=== PATIENT | female | born 1965 | race Caucasian/White ===

== ENCOUNTER 2018-05-31 19:18 | Inpatient (IN) | payer OTHER ==
[~2018-05-31] VITALS: Ht 160 cm; Wt 104.8 kg
--- NOTE | 2018-05-31 19:50 | PHYS DOC ---
Past Medical History Past Medical History: Hypothyroid Alcohol Use: None Drug Use: None Adult General Chief Complaint Chief Complaint: CHEST PAIN HPI HPI Patient is a 52 year old female who presents with chest and neck pain. This started approximately 1700 today. No respirophasic component. No PE risk factors. Patient took no medicine for this. Describes it as a heaviness. Nothing really seems to make it better or worse. No nausea or diaphoresis. No cough or fever. Patient has a family history of cardiac disease with mother needing a pacemaker and father having heart attack[] Review of Systems Review of Systems Constitutional: Denies fever or chills [] Eyes: Denies change in visual acuity, redness, or eye pain [] HENT: Denies nasal congestion or sore throat [] Respiratory: Denies cough or shortness of breath [] Cardiovascular: No additional information not addressed in HPI [] GI: Denies abdominal pain, nausea, vomiting, bloody stools or diarrhea [] : Denies dysuria or hematuria [] Musculoskeletal: Denies back pain or joint pain [] Integument: Denies rash or skin lesions [] Neurologic: Denies headache, focal weakness or sensory changes [] Endocrine: Denies polyuria or polydipsia [] All other systems were reviewed and found to be within normal limits, except as documented in this note. Current Medications Current Medications Current Medications Medications (Trade) Dose Ordered Sig/Contreras Start Time Stop Time Status Last Admin Dose Admin Aspirin (Children'S Aspirin) 324 mg 1X ONCE 05/31/18 20:15 05/31/18 20:16 DC 05/31/18 20:09 324 MG Sodium Chloride 1,000 ml @ 100 mls/hr Q10H 05/31/18 20:15 06/01/18 06:14 05/31/18 20:10 100 MLS/HR Allergies Allergies Allergies Coded Allergies Type Severity Reaction Last Updated Verified calamine Allergy Unknown 05/31/18 Yes Physical Exam Physical Exam Constitutional: Well developed, well nourished, no acute distress, non-toxic appearance. [] HENT: Normocephalic, atraumatic, bilateral external ears normal, oropharynx moist, no oral exudates, nose normal. [] Eyes: PERRLA, EOMI, conjunctiva normal, no discharge. [] Neck: Normal range of motion, no tenderness, supple, no stridor. [] Cardiovascular:Heart rate regular rhythm, no murmur [] Lungs & Thorax: Bilateral breath sounds clear to auscultation [] Abdomen: Bowel sounds normal, soft, no tenderness, no masses, no pulsatile masses. [] Skin: Warm, dry, no erythema, no rash. [] Back: No tenderness, no CVA tenderness. [] Extremities: No tenderness, no cyanosis, no clubbing, ROM intact, no edema. [] Neurologic: Alert and oriented X 3, normal motor function, normal sensory function, no focal deficits noted. [] Psychologic: Affect normal, judgement normal, mood normal. [] Current Patient Data Vital Signs Vital Signs Date Time Temp Pulse Resp B/P (MAP) Pulse Ox O2 Delivery O2 Flow Rate FiO2 05/31/18 19:35 98.0 84 20 144/84 (104) 97 Room Air 98.0 Lab Values Laboratory Tests Test 05/31/18 19:55 05/31/18 19:57 White Blood Count 7.2 x10^3/uL (4.0-11.0) Red Blood Count 3.89 x10^6/uL (3.50-5.40) Hemoglobin 12.3 g/dL (12.0-15.5) Hematocrit 36.8 % (36.0-47.0) Mean Corpuscular Volume 95 fL (79-100) Mean Corpuscular Hemoglobin 32 pg (25-35) Mean Corpuscular Hemoglobin Concent 33 g/dL (31-37) Red Cell Distribution Width 14.6 % (11.5-14.5) H Platelet Count 302 x10^3/uL (140-400) Neutrophils (%) (Auto) 58 % (31-73) Lymphocytes (%) (Auto) 30 % (24-48) Monocytes (%) (Auto) 8 % (0-9) Eosinophils (%) (Auto) 2 % (0-3) Basophils (%) (Auto) 2 % (0-3) Neutrophils # (Auto) 4.1 x10^3uL (1.8-7.7) Lymphocytes # (Auto) 2.2 x10^3/uL (1.0-4.8) Monocytes # (Auto) 0.6 x10^3/uL (0.0-1.1) Eosinophils # (Auto) 0.2 x10^3/uL (0.0-0.7) Basophils # (Auto) 0.1 x10^3/uL (0.0-0.2) Prothrombin Time 12.7 SEC (11.7-14.0) Prothrombin Time INR 1.0 (0.8-1.1) Sodium Level 144 mmol/L (136-145) Potassium Level 3.3 mmol/L (3.5-5.1) L Chloride Level 105 mmol/L (98-107) Carbon Dioxide Level 26 mmol/L (21-32) Anion Gap 13 (6-14) Blood Urea Nitrogen 17 mg/dL (7-20) Creatinine 1.4 mg/dL (0.6-1.0) H Estimated GFR (Cockcroft-Gault) 39.3 BUN/Creatinine Ratio 12 (6-20) Glucose Level 114 mg/dL (70-99) H Calcium Level 9.0 mg/dL (8.5-10.1) Magnesium Level 2.3 mg/dL (1.8-2.4) Total Bilirubin 0.3 mg/dL (0.2-1.0) Aspartate Amino Transferase (AST) 21 U/L (15-37) Alanine Aminotransferase (ALT) 16 U/L (14-59) Alkaline Phosphatase 90 U/L (46-116) Troponin I Quantitative < 0.017 ng/mL (0.000-0.055) VN-Adw-N-Type Natriuretic Peptide 41 pg/mL (0-124) Total Protein 7.8 g/dL (6.4-8.2) Albumin 3.7 g/dL (3.4-5.0) Albumin/Globulin Ratio 0.9 (1.0-1.7) L Lipase 109 U/L (73-393) Thyroid Stimulating Hormone (TSH) 258.496 uIU/mL (0.358-3.74) H POC Troponin I 0.09 ng/ml (<0.08) Laboratory Tests 05/31/18 19:55 Laboratory Tests 05/31/18 19:55 EKG EKG EKG shows a sinus rhythm at 71 bpm, normal axis, QTC of 450 ms, no ST elevation. Interpreted by me at 1935[] Radiology/Procedures Radiology/Procedures Chest x-ray shows no infiltrate, no effusion, no pneumothorax[] Course & Med Decision Making Course & Med Decision Making Pertinent Labs and Imaging studies reviewed. (See chart for details) ED course: Patient arrived, was placed in bed, and tolerated exam well. She was transported to and from x-ray without any complications. After return of lab and imaging findings, these were discussed with the patient and her both of whom voiced understanding. All questions were answered. Consultation was made with hospitalist service who graciously accepted the patient for admission. Patient was admitted in improved condition Medical decision making: Patient does not have a STEMI, no evidence of pulmonary embolism, pneumonia, pneumothorax, thoracic aneurysm dissection, nor esophageal rupture. Concerned about cardiac etiology for this chest and neck discomfort given her age, BMI, and family history.[] Dragon Disclaimer Dragon Disclaimer This electronic medical record was generated, in whole or in part, using a voice recognition dictation system. Departure Departure Impression: Primary Impression: Chest pain Disposition: HOME, SELF-CARE Admitting Physician: Mauro Grossman Condition: IMPROVED Problem Qualifiers Primary Impression: Chest pain Chest pain type: unspecified Qualified Codes: R07.9 - Chest pain, unspecified ANA PAULA MEYER DO May 31, 2018 19:50
[2018-05-31 20:12] LABS: BASO # 0.1 x10^3/uL (0.0-0.2); BASO % 2 % (0-3); EOS # 0.2 x10^3/uL (0.0-0.7); EOS % 2 % (0-3); HEMATOCRIT 36.8 % (36.0-47.0); HEMOGLOBIN 12.3 g/dL (12.0-15.5); LYMPH # 2.2 x10^3/uL (1.0-4.8); LYMPH % 30 % (24-48); MEAN CORPUSCULAR HEMOGLOBIN 32 pg (25-35); MEAN CORPUSCULAR HGB CONC 33 g/dL (31-37); MEAN CORPUSCULAR VOLUME 95 fL (79-100); MONO # 0.6 x10^3/uL (0.0-1.1); MONO % 8 % (0-9); NEUT # 4.1 x10^3uL (1.8-7.7); NEUT % 58 % (31-73); PLATELET COUNT 302 x10^3/uL (140-400); RED BLOOD COUNT 3.89 x10^6/uL (3.50-5.40); RED CELL DISTRIBUTION WIDTH 14.6 % (11.5-14.5); WHITE BLOOD COUNT 7.2 x10^3/uL (4.0-11.0)
[2018-05-31] MEDS ORDERED: ASPIRIN CHEWABLE 81 MG TABLET. PO ONE (20:15)
[2018-05-31] MEDS ORDERED: IV NORMAL SALINE 1000ML BAG 1,000 ML IV SCH (20:15)
[2018-05-31 20:21] LABS: PROTHROMBIN TIME PATIENT 12.7 SEC (11.7-14.0)
[2018-05-31 20:24] LABS: CREATININE 1.4 mg/dL (0.6-1.0); GFR 39.3; POTASSIUM 3.3 mmol/L (3.5-5.1)
[2018-05-31 20:28] LABS: ALBUMIN 3.7 g/dL (3.4-5.0); ALBUMIN/GLOBULIN RATIO 0.9 (1.0-1.7); MAGNESIUM 2.3 mg/dL (1.8-2.4); TOTAL BILIRUBIN 0.3 mg/dL (0.2-1.0); TOTAL PROTEIN 7.8 g/dL (6.4-8.2)
[2018-05-31] MEDS ORDERED: NITROGLYCERIN SUBLINGUAL 0.4 MG BOTTLE OF 25. SL PRN (22:00)
[2018-05-31] MEDS ORDERED: MORPHINE SULFATE 2 MG/ML VIAL. IV PRN (22:00)
[2018-05-31] MEDS ORDERED: ACETAMINOPHEN 325 MG TABLET. PO PRN (22:00)
[2018-05-31] MEDS ORDERED: ONDANSETRON PF 4 MG/2 ML VIAL. IV PRN (22:00)
[2018-05-31 23:00] VITALS: BP 161/82
[2018-05-31] MEDS ORDERED: LEVO150T PO (23:32)
[2018-05-31] MEDS: IV NORMAL SALINE 1000ML BAG 1,000 ML IV SCH (23:37)
--- NOTE | 2018-06-01 02:49 | EKG ---
[facility] [address] [place] [address] Test Date: 2018-06-01 Test Time: 01:50:51 Pat Name: ADA SANTOYO Department: Room: 204 1 Gender: F Nonprofit Financial Controller: EDELMIRART : 1965 Requested By: ANA PAULA MEYER Order Number: [id number] Reading MD: Reza Azul MD Measurements Intervals [place] Rate: 62 P: 39 NE: 158 QRS: 63 QRSD: 82 T: 114 QT: 374 QTc: 382 Interpretive Statements SINUS RHYTHM Electronically Signed On 06-06-2018 14:04:00 CDT by Reza Azul MD
[2018-06-01 03:00] VITALS: BP 146/78
--- NOTE | 2018-06-01 06:40 | RAD ---
PROCEDURE: CHEST PA LATERAL CLINICAL INDICATION: ER PATIENT. ATRAUMATIC CHEST PAIN RIGHT SIDE RADIATING TO THE NECK. NO PRIORS. COMPARISON: None FINDINGS: No pneumothorax identified. Cardiac and mediastinal contours unremarkable. No pulmonary consolidation or acute airspace disease. No acute osseous abnormalities identified. IMPRESSION: No pulmonary consolidation or acute airspace disease. Electronically signed by: Robert Meyers DO (06/01/2018 6:36 AM) [facility]
[2018-06-01 07:30] VITALS: BP 129/70
[2018-06-01 07:31] LABS: CHOLESTEROL/HDL RATIO 3.9
--- NOTE | 2018-06-01 09:15 | PDOC1 ---
History and Physical Date of Admission Date of Admission DATE: 06/01/18 TIME: 09:14 Identification/Chief Complaint Chief Complaint SEEN IN ER , presented with chest and LEFT neck pain. This started approximately 1700 05/31 . No respirophasic component. No PE risk factors. Patient took no medicine for this. Describes it as a heaviness. LEFT SIDE radiation left arm Nothing really seems to make it better or worse. No nausea or diaphoresis. No cough or fever. POS family history of cardiac disease with mother needing a pacemaker and father having heart attack[] TROPONIN I NEG SO FAR, ECHO PENDING Past Medical History Past Medical History Past Medical History Past Medical History: Hypothyroid, OBESITY, CHOLECYSTECTOMY Alcohol Use: None Drug Use: None STOPPED SMOKING 7 YRS AGO FAMILY HX FATHER HAD PR Cardiovascular: Hyperlipidemia Endocrine: Hypothyroidism Family History Family History: Coronary Artery Disease Family History: Parent Social History Smoke: Quit ALCOHOL: none Drugs: None Current Problem List Problem List Problems Medical Problems: (1) Chest pain Status: Acute Current Medications Current Medications Current Medications Aspirin (Children'S Aspirin) 324 mg 1X ONCE PO Last administered on 05/31/18at 20:09; Start 05/31/18 at 20:15; Stop 05/31/18 at 20:16; Status DC Sodium Chloride 1,000 ml @ 100 mls/hr Q10H IV Last administered on 05/31/18at 20:10; Start 05/31/18 at 20:15; Stop 06/01/18 at 06:14; Status DC Ondansetron HCl (Zofran) 4 mg PRN Q8HRS PRN IV NAUSEA/VOMITING 1ST CHOICE; Start 05/31/18 at 22:00; Stop 06/01/18 at 21:59 Morphine Sulfate (Morphine Sulfate) 2 mg PRN Q2HR PRN IV SEVERE PAIN; Start at 22:00; Stop 06/01/18 at 21:59 Sodium Chloride 1,000 ml @ 125 mls/hr Q8H IV Last administered on 05/31/18at 23 :37; Start 05/31/18 at 22:00; Stop 06/01/18 at 21:59 Acetaminophen (Tylenol) 650 mg PRN Q4HRS PRN PO FEVER Last administered on 05/31at 22:49; Start 05/31/18 at 22:00; Stop 3/16/19 at 21:59 Nitroglycerin (Nitrostat) 0.4 mg PRN Q5MIN PRN SL CHEST PAIN; Start 05/31/18 at 22:00; Stop 06/01/18 at 21:59 Active Scripts Active Reported Synthroid (Levothyroxine Sodium) 150 Mcg Tablet 1 Tab PO BID Allergies Allergies: Coded Allergies: calamine (Verified Allergy, Intermediate, 05/31/18) ROS Review of System Review of Systems Review of Systems Constitutional: Denies fever or chills [] Eyes: Denies change in visual acuity, redness, or eye pain [] HENT: Denies nasal congestion or sore throat [] Respiratory: Denies cough or shortness of breath [] Cardiovascular: No additional information not addressed in HPI [] GI: Denies abdominal pain, nausea, vomiting, bloody stools or diarrhea [] : Denies dysuria or hematuria [] Musculoskeletal: Denies back pain or joint pain [] Integument: Denies rash or skin lesions [] Neurologic: Denies headache, focal weakness or sensory changes [] Endocrine: Denies polyuria or polydipsia [] 14 pt systems were reviewed and found to be within normal limits, except as documented General: No: Chills, Night Sweats, Fatigue, Malaise, Appetite, Other HEENT: No: Heacaches, Visual Changes, Hearing change, Nasal congestion, Nasal discharge, Oral lesions, Sinus pain, Sore Throat, Epistaxis, Sneezing, Snoring, Tinnitus, Vertigo, Vocal changes, Other ALLERGY AND IMMUNOLOGY: No: Hives, Insect Bite Sensitivity, Itchy/Watery Eyes, Nasal Congestion, Post Nasal Drip, Seasonal Allergies, Other ENDOCRINE: No: Breast Changes, Galactorrhea, Hair Pattern Changes, Hot Flashes , Malaise/lethargy, Mood Swings, Palpitations, Polydipsia/polyuria, Skin Changes , Temperature Intolerance, Unexpected Weight Changes, Other Cardiovascular: yes Chest Pain Gastrointestinal: Yes Abdominal Pain (ruq); No Nausea, No Vomiting, No Diarrhea, No Constipation, No Melena, No Hematochezia, No Other Musculoskeletal: No Gait Disturbance, No Joint Pain, No Joint Stiffness, No Joint Swelling, No Muscle Pain, No Muscular Weakness, No Pain In:, No Swelling In:, No Other Neurological: No Behavorial Changes, No Bowel/Bladder ControlChng, No Confusion , No Dizziness, No Gait Disturbance, No Headaches, No Impaired Coord/balance, No Memory Loss, No Numbness/Tingling, No Seizures, No Speech Problems, No Tremors, No Visual Changes, No Weakness, No Other Physical Exam Physical Exam Physical Exam Physical Exam Constitutional: Well developed, well nourished, no acute distress, non-toxic appearance. [] HENT: Normocephalic, atraumatic, bilateral external ears normal, oropharynx moist, no oral exudates, nose normal. [] Eyes: PERRLA, EOMI, conjunctiva normal, no discharge. [] Neck: Normal range of motion, no tenderness, supple, no stridor. [] Cardiovascular:Heart rate regular rhythm, no murmur [] Lungs & Thorax: Bilateral breath sounds clear to auscultation [] Abdomen: Bowel sounds normal, soft, no tenderness, no masses, no pulsatile masses. [] Skin: Warm, dry, no erythema, no rash. [] Back: No tenderness, no CVA tenderness. [] Extremities: No tenderness, no cyanosis, no clubbing, ROM intact, no edema. [] Neurologic: Alert and oriented X 3, normal motor function, normal sensory function, no focal deficits noted. [] Psychologic: Affect normal, judgement normal, mood normal. [] General: Alert, Oriented X3, Cooperative, No acute distress HEENT: Atraumatic, PERRLA Lungs: Clear to auscultation Heart: S1S2, RRR, no thrills, no rubs, no gallops, no murmurs Breasts: Not examined Abdomen: Normal bowel sounds, Soft, No hepatosplenomegaly Rectal Exam: not examined Extremities: No cyanosis, No edema Neuro: Normal speech, Cranial nerves 3-12 NL Psych/Mental Status: Mental status NL Vitals Vitals Vital Signs Date Time Temp Pulse Resp B/P (MAP) Pulse Ox O2 Delivery O2 Flow Rate FiO2 06/01/18 07:40 Room Air 06/01/18 07:30 98.2 62 18 129/70 (89) 96 98.2 Labs Labs Laboratory Tests Test 05/31/18 19:55 05/31/18 19:57 06/01/18 01:30 06/01/18 01:34 White Blood Count 7.2 x10^3/uL (4.0-11.0) Red Blood Count 3.89 x10^6/uL (3.50-5.40) Hemoglobin 12.3 g/dL (12.0-15.5) Hematocrit 36.8 % (36.0-47.0) Mean Corpuscular Volume 95 fL (79-100) Mean Corpuscular Hemoglobin 32 pg (25-35) Mean Corpuscular Hemoglobin Concent 33 g/dL (31-37) Red Cell Distribution Width 14.6 % (11.5-14.5) Platelet Count 302 x10^3/uL (140-400) Neutrophils (%) (Auto) 58 % (31-73) Lymphocytes (%) (Auto) 30 % (24-48) Monocytes (%) (Auto) 8 % (0-9) Eosinophils (%) (Auto) 2 % (0-3) Basophils (%) (Auto) 2 % (0-3) Neutrophils # (Auto) 4.1 x10^3uL (1.8-7.7) Lymphocytes # (Auto) 2.2 x10^3/uL (1.0-4.8) Monocytes # (Auto) 0.6 x10^3/uL (0.0-1.1) Eosinophils # (Auto) 0.2 x10^3/uL (0.0-0.7) Basophils # (Auto) 0.1 x10^3/uL (0.0-0.2) Prothrombin Time 12.7 SEC (11.7-14.0) Prothromb Time International Ratio 1.0 (0.8-1.1) Sodium Level 144 mmol/L (136-145) Potassium Level 3.3 mmol/L (3.5-5.1) Chloride Level 105 mmol/L (98-107) Carbon Dioxide Level 26 mmol/L (21-32) Anion Gap 13 (6-14) Blood Urea Nitrogen 17 mg/dL (7-20) Creatinine 1.4 mg/dL (0.6-1.0) Estimated GFR (Cockcroft-Gault) 39.3 BUN/Creatinine Ratio 12 (6-20) Glucose Level 114 mg/dL (70-99) Calcium Level 9.0 mg/dL (8.5-10.1) Magnesium Level 2.3 mg/dL (1.8-2.4) Total Bilirubin 0.3 mg/dL (0.2-1.0) Aspartate Amino Transf (AST/SGOT) 21 U/L (15-37) Alanine Aminotransferase (ALT/SGPT) 16 U/L (14-59) Alkaline Phosphatase 90 U/L (46-116) Troponin I Quantitative < 0.017 ng/mL (0.000-0.055) < 0.017 ng/mL (0.000-0.055) < 0.017 ng/mL (0.000-0.055) OC-Pih-C-Type Natriuretic Peptide 41 pg/mL (0-124) Total Protein 7.8 g/dL (6.4-8.2) Albumin 3.7 g/dL (3.4-5.0) Albumin/Globulin Ratio 0.9 (1.0-1.7) Lipase 109 U/L (73-393) Thyroid Stimulating Hormone (TSH) 258.496 uIU/mL (0.358-3.74) Bedside Troponin I 0.09 ng/ml (<0.08) Test 06/01/18 05:30 Triglycerides Level 97 mg/dL (0-150) Cholesterol Level 221 mg/dL (0-200) LDL Cholesterol, Calculated 146 mg/dL (0-100) VLDL Cholesterol, Calculated 19 mg/dL (0-40) Non-HDL Cholesterol Calculated 165 mg/dL (0-129) HDL Cholesterol 56 mg/dL (40-60) Cholesterol/HDL Ratio 3.9 Laboratory Tests Test 05/31/18 19:55 05/31/18 19:57 06/01/18 01:30 06/01/18 01:34 White Blood Count 7.2 x10^3/uL (4.0-11.0) Red Blood Count 3.89 x10^6/uL (3.50-5.40) Hemoglobin 12.3 g/dL (12.0-15.5) Hematocrit 36.8 % (36.0-47.0) Mean Corpuscular Volume 95 fL (79-100) Mean Corpuscular Hemoglobin 32 pg (25-35) Mean Corpuscular Hemoglobin Concent 33 g/dL (31-37) Red Cell Distribution Width 14.6 % (11.5-14.5) Platelet Count 302 x10^3/uL (140-400) Neutrophils (%) (Auto) 58 % (31-73) Lymphocytes (%) (Auto) 30 % (24-48) Monocytes (%) (Auto) 8 % (0-9) Eosinophils (%) (Auto) 2 % (0-3) Basophils (%) (Auto) 2 % (0-3) Neutrophils # (Auto) 4.1 x10^3uL (1.8-7.7) Lymphocytes # (Auto) 2.2 x10^3/uL (1.0-4.8) Monocytes # (Auto) 0.6 x10^3/uL (0.0-1.1) Eosinophils # (Auto) 0.2 x10^3/uL (0.0-0.7) Basophils # (Auto) 0.1 x10^3/uL (0.0-0.2) Prothrombin Time 12.7 SEC (11.7-14.0) Prothromb Time International Ratio 1.0 (0.8-1.1) Sodium Level 144 mmol/L (136-145) Potassium Level 3.3 mmol/L (3.5-5.1) Chloride Level 105 mmol/L (98-107) Carbon Dioxide Level 26 mmol/L (21-32) Anion Gap 13 (6-14) Blood Urea Nitrogen 17 mg/dL (7-20) Creatinine 1.4 mg/dL (0.6-1.0) Estimated GFR (Cockcroft-Gault) 39.3 BUN/Creatinine Ratio 12 (6-20) Glucose Level 114 mg/dL (70-99) Calcium Level 9.0 mg/dL (8.5-10.1) Magnesium Level 2.3 mg/dL (1.8-2.4) Total Bilirubin 0.3 mg/dL (0.2-1.0) Aspartate Amino Transf (AST/SGOT) 21 U/L (15-37) Alanine Aminotransferase (ALT/SGPT) 16 U/L (14-59) Alkaline Phosphatase 90 U/L (46-116) Troponin I Quantitative < 0.017 ng/mL (0.000-0.055) < 0.017 ng/mL (0.000-0.055) < 0.017 ng/mL (0.000-0.055) KS-Fgx-E-Type Natriuretic Peptide 41 pg/mL (0-124) Total Protein 7.8 g/dL (6.4-8.2) Albumin 3.7 g/dL (3.4-5.0) Albumin/Globulin Ratio 0.9 (1.0-1.7) Lipase 109 U/L (73-393) Thyroid Stimulating Hormone (TSH) 258.496 uIU/mL (0.358-3.74) Bedside Troponin I 0.09 ng/ml (<0.08) Test 06/01/18 05:30 Triglycerides Level 97 mg/dL (0-150) Cholesterol Level 221 mg/dL (0-200) LDL Cholesterol, Calculated 146 mg/dL (0-100) VLDL Cholesterol, Calculated 19 mg/dL (0-40) Non-HDL Cholesterol Calculated 165 mg/dL (0-129) HDL Cholesterol 56 mg/dL (40-60) Cholesterol/HDL Ratio 3.9 Images Images SEX: F EXAM STATUS: ADM IN ORD. PHYSICIAN: ANA PAULA MEYER DO REASON: chest pain PROCEDURE: CHEST PA & LATERAL PROCEDURE: CHEST PA LATERAL CLINICAL INDICATION: ER PATIENT. ATRAUMATIC CHEST PAIN RIGHT SIDE RADIATING TO THE NECK. NO PRIORS. COMPARISON: None FINDINGS: No pneumothorax identified. Cardiac and mediastinal contours unremarkable. No pulmonary consolidation or acute airspace disease. No acute osseous abnormalities identified. IMPRESSION: No pulmonary consolidation or acute airspace disease. Electronically signed by: Robert Meyers DO (06/01/2018 6:36 AM) [facility] VTE Prophylaxis Ordered VTE Prophylaxis Devices: Yes VTE Pharmacological Prophylaxi: Yes Assessment/Plan Assessment/Plan impression 1. chest pain with risk factors inc pos FAMILY HX, PREV SMOKER, POST MENOPAUSAL STATE, OBESITY 2. RUQ discomfort, needs outpatient work-up with PCP 3. Hypothyroid state, forgot to take meds x 48 hrs with inc TSH, NEEDS PCP TO FOLLOW 4, MORBID OBESITY 5. HYPERLIPIDEMIA, SHOULD IMPROVE WITH THYROID SUPPLEMENT RESTART, // F/U PCP PLAN ADMIT CARDIOLOGY CONSULT ECHO SERIAL TROPONIN I DVT PROPHYLAXIS CONSIDER OUTPT STRESS TESTING RESTART SYNTHROID 0.150 MG PO DAILY PROTONIX 40MG PO DAILY CHRISTO SO MD Jun 01, 2018 09:14
[2018-06-01 11:19] VITALS: BP 138/75
[2018-06-01] MEDS ORDERED: POTASSIUM CHLORIDE 20 MEQ TABLET.ER. PO ONE (11:45)
--- NOTE | 2018-06-01 11:45 | PDOC2 ---
CARDIOLOGY CONSULT NOTE CHEIF COMPLAINT: Chest pain HPI: Magdalena is a pleasant 52 yo female w/ PMH of hypothyroidism who was seen today for chest pain. Patient states that yesterday after she woke up and was active she started having a tightness and severe pain, 10/10, in her neck that radiated to her chest and down her left UE. She stated that the pain lasted a couple hours causing her to come to the ED. She admitted having nausea, [place], dizziness, SOB, and numbness in her left hand. She denied heart palpitations. She denied aggravating and alleviating factors. The pain spontaneously resolved after being treated in the ER. She currently admits having RUQ abdominal pain that she describes as a dull pain. She states that it is constant and has been present for multiple years but it has recently increased in severity. She rates the pain as a 6/10 but denies any increase in pain w/ urination. PMHX: Hypothyroidism SOCHX: >20 pk year history quit smoking 7 years prior Denies alcohol and recreational drug use FAMHX: Mother: CHF and HTN Father: AL in 70s, CABG x5 CURRENT MEDS: Current Medications Medications (Trade) Dose Ordered Sig/Contreras Start Time Stop Time Status Last Admin Dose Admin Acetaminophen (Tylenol) 650 mg PRN Q4HRS PRN 05/31/18 22:00 06/01/18 21:59 05/31/18 22:49 650 MG Aspirin (Children'S Aspirin) 324 mg 1X ONCE 05/31/18 20:15 05/31/18 20:16 DC 05/31/18 20:09 324 MG Morphine Sulfate (Morphine Sulfate) 2 mg PRN Q2HR PRN 05/31/18 22:00 06/01/18 21:59 Nitroglycerin (Nitrostat) 0.4 mg PRN Q5MIN PRN 05/31/18 22:00 06/01/18 21:59 Ondansetron HCl (Zofran) 4 mg PRN Q8HRS PRN 05/31/18 22:00 06/01/18 21:59 Sodium Chloride 1,000 ml @ 125 mls/hr Q8H 05/31/18 22:00 06/01/18 21:59 05/31/18 23:37 125 MLS/HR ALLERGIES: Allergies Coded Allergies Type Severity Reaction Last Updated Verified calamine Allergy Intermediate 05/31/18 Yes ROS: GEN: Denies fever and fatigue HEENT: Admits headache, denies change in vision HEART: see HPI LUNGS: Denies cough and wheezing GI: admits constipation : Denies dysuria and frequent urination EXTREMITIES: Admits edema in her hands, denies weakness PHYSICAL EXAM: Vital Signs: Vital Signs Date Time Temp Pulse Resp B/P (MAP) Pulse Ox O2 Delivery O2 Flow Rate FiO2 06/01/18 07:40 Room Air 06/01/18 07:30 98.2 62 18 129/70 (89) 96 98.2 I & O Intake and Output 06/01/18 07:00 Intake Total 1300 ml Output Total 200 ml Balance 1100 ml Intake Oral 300 ml IV Total 1000 ml Output Urine Total 200 ml Physical Exam: GEN: pleasant, NAD HEENT: unremarkable HEART: RRR LUNGS: CTAB ABD: Obese, NT/ND EXT: No edema. MSK: Mild TTP of the left costophrenic angles DIAGNOSTIC TESTING: Trop negative x 1 EKG unremarkable ASSESSMENT: 1. Non-cardiac chest pain 2. Elevated TSH 3. Dyslipidemia 4. prior tobacco abuse. PLAN: 1. No clear cardiac symptoms currently 2. Continue to cycle enzymes and plan for outpt stress testing based on risk factors. Ok to DC tomorrow if stable overnight. LAVERNE FERGUSON MD Jun 01, 2018 11:45
[2018-06-01] MEDS: IV NORMAL SALINE 1000ML BAG 1,000 ML IV SCH (12:12)
[2018-06-01 15:00] VITALS: BP 120/73
[2018-06-01] MEDS: PANTOPRAZOLE 40 MG TABLET.DR. PO SCH (15:00)
--- NOTE | 2018-06-01 17:13 | EKG ---
[facility] [address] [place] [address] Test Date: 2018-05-31 Test Time: 19:33:48 Pat Name: ADA SANTOYO Department: Room: 204 1 Gender: Female [employer] Operator: : 1965 Requested By: ANA PAULA MEYER Order Number: [id number] Reading MD: Reza Azul MD Measurements Intervals Hir[place] Rate: 70 P: 157 PA: 152 QRS: 13 QRSD: 82 T: 40 QT: 414 QTc: 450 Interpretive Statements PROBABLE SR NON-SPECIFIC ST/T CHANGES BASELINE ARTIFACT Electronically Signed On 06-06-2018 14:02:46 CDT by Reza Azul MD
[2018-06-01 19:20] VITALS: BP 150/68
[2018-06-01 23:40] VITALS: BP 138/70
[2018-06-02 03:15] VITALS: BP 142/69
[2018-06-02] MEDS ORDERED: LEVOTHYROXINE 150 MCG TABLET PO SCH (06:00)
[2018-06-02] MEDS: PANTOPRAZOLE 40 MG TABLET.DR. PO SCH (07:30)
[2018-06-02 07:35] VITALS: BP 145/75
[2018-06-02 10:16] VITALS: BP 121/71
--- NOTE | 2018-06-02 11:21 | PDOC ---
PROGRESS NOTES History of Present Illness History of Present Illness Assessment/Plan Assessment/Plan impression 1. chest pain with risk factors inc pos FAMILY HX, PREV SMOKER, POST MENOPAUSAL STATE, OBESITY 2. RUQ discomfort, needs outpatient work-up with PCP 3. Hypothyroid state, forgot to take meds x 48 hrs with inc TSH, NEEDS PCP TO FOLLOW 4, MORBID OBESITY 5. HYPERLIPIDEMIA, SHOULD IMPROVE WITH THYROID SUPPLEMENT RESTART, // F/U PCP PLAN HOME TODAY IF ECHO IS OK CARDIOLOGY CONSULT OK WITH D/C IF ECHO OK ECHO SERIAL TROPONIN I DVT PROPHYLAXIS CONSIDER OUT-PT STRESS TESTING RESTART SYNTHROID 0.150 MG PO DAILY PROTONIX 40MG PO DAILY Vitals Vitals Vital Signs Date Time Temp Pulse Resp B/P (MAP) Pulse Ox O2 Delivery O2 Flow Rate FiO2 06/02/18 10:16 98.1 65 18 121/71 (88) 97 Room Air 98.1 Physical Exam General: Alert, Oriented X3, Cooperative, No acute distress Heart: Regular rate, Normal S1 Abdomen: Normal bowel sounds, Soft, No hepatosplenomegaly Extremities: No clubbing, No cyanosis, No edema Skin: No significant lesion Labs LABS Laboratory Tests Test 06/01/18 12:15 Troponin I Quantitative < 0.017 ng/mL (0.000-0.055) Thyroid Stimulating Hormone (TSH) 198.260 uIU/mL (0.358-3.74) Assessment and Plan Assessmemt and Plan Problems Medical Problems: (1) Chest pain Status: Acute Comment Review of Relevant I have reviewed the following items derrick (where applicable) has been applied. Labs Laboratory Tests Test 05/31/18 19:55 05/31/18 19:57 06/01/18 01:30 06/01/18 01:34 White Blood Count 7.2 x10^3/uL (4.0-11.0) Red Blood Count 3.89 x10^6/uL (3.50-5.40) Hemoglobin 12.3 g/dL (12.0-15.5) Hematocrit 36.8 % (36.0-47.0) Mean Corpuscular Volume 95 fL (79-100) Mean Corpuscular Hemoglobin 32 pg (25-35) Mean Corpuscular Hemoglobin Concent 33 g/dL (31-37) Red Cell Distribution Width 14.6 % (11.5-14.5) Platelet Count 302 x10^3/uL (140-400) Neutrophils (%) (Auto) 58 % (31-73) Lymphocytes (%) (Auto) 30 % (24-48) Monocytes (%) (Auto) 8 % (0-9) Eosinophils (%) (Auto) 2 % (0-3) Basophils (%) (Auto) 2 % (0-3) Neutrophils # (Auto) 4.1 x10^3uL (1.8-7.7) Lymphocytes # (Auto) 2.2 x10^3/uL (1.0-4.8) Monocytes # (Auto) 0.6 x10^3/uL (0.0-1.1) Eosinophils # (Auto) 0.2 x10^3/uL (0.0-0.7) Basophils # (Auto) 0.1 x10^3/uL (0.0-0.2) Prothrombin Time 12.7 SEC (11.7-14.0) Prothromb Time International Ratio 1.0 (0.8-1.1) Sodium Level 144 mmol/L (136-145) Potassium Level 3.3 mmol/L (3.5-5.1) Chloride Level 105 mmol/L (98-107) Carbon Dioxide Level 26 mmol/L (21-32) Anion Gap 13 (6-14) Blood Urea Nitrogen 17 mg/dL (7-20) Creatinine 1.4 mg/dL (0.6-1.0) Estimated GFR (Cockcroft-Gault) 39.3 BUN/Creatinine Ratio 12 (6-20) Glucose Level 114 mg/dL (70-99) Calcium Level 9.0 mg/dL (8.5-10.1) Magnesium Level 2.3 mg/dL (1.8-2.4) Total Bilirubin 0.3 mg/dL (0.2-1.0) Aspartate Amino Transf (AST/SGOT) 21 U/L (15-37) Alanine Aminotransferase (ALT/SGPT) 16 U/L (14-59) Alkaline Phosphatase 90 U/L (46-116) Troponin I Quantitative < 0.017 ng/mL (0.000-0.055) < 0.017 ng/mL (0.000-0.055) < 0.017 ng/mL (0.000-0.055) QY-Pfd-A-Type Natriuretic Peptide 41 pg/mL (0-124) Total Protein 7.8 g/dL (6.4-8.2) Albumin 3.7 g/dL (3.4-5.0) Albumin/Globulin Ratio 0.9 (1.0-1.7) Lipase 109 U/L (73-393) Thyroid Stimulating Hormone (TSH) 258.496 uIU/mL (0.358-3.74) Bedside Troponin I 0.09 ng/ml (<0.08) Test 06/01/18 05:30 06/01/18 12:15 Triglycerides Level 97 mg/dL (0-150) Cholesterol Level 221 mg/dL (0-200) LDL Cholesterol, Calculated 146 mg/dL (0-100) VLDL Cholesterol, Calculated 19 mg/dL (0-40) Non-HDL Cholesterol Calculated 165 mg/dL (0-129) HDL Cholesterol 56 mg/dL (40-60) Cholesterol/HDL Ratio 3.9 Troponin I Quantitative < 0.017 ng/mL (0.000-0.055) Thyroid Stimulating Hormone (TSH) 198.260 uIU/mL (0.358-3.74) Laboratory Tests Test 06/01/18 12:15 Troponin I Quantitative < 0.017 ng/mL (0.000-0.055) Thyroid Stimulating Hormone (TSH) 198.260 uIU/mL (0.358-3.74) Medications Current Medications Aspirin (Children'S Aspirin) 324 mg 1X ONCE PO Last administered on 05/31/18at 20:09; Start 05/31/18 at 20:15; Stop 05/31/18 at 20:16; Status DC Sodium Chloride 1,000 ml @ 100 mls/hr Q10H IV Last administered on 05/31/18at 20:10; Start 05/31/18 at 20:15; Stop 06/01/18 at 06:14; Status DC Ondansetron HCl (Zofran) 4 mg PRN Q8HRS PRN IV NAUSEA/VOMITING 1ST CHOICE; Start 05/31/18 at 22:00; Stop 06/01/18 at 21:59; Status DC Morphine Sulfate (Morphine Sulfate) 2 mg PRN Q2HR PRN IV SEVERE PAIN; Start at 22:00; Stop 06/01/18 at 21:59; Status DC Sodium Chloride 1,000 ml @ 125 mls/hr Q8H IV Last administered on 06/01/18at 12 :12; Start 05/31/18 at 22:00; Stop 06/01/18 at 14:06; Status DC Acetaminophen (Tylenol) 650 mg PRN Q4HRS PRN PO FEVER Last administered on 05/31at 22:49; Start 05/31/18 at 22:00; Stop 06/01/18 at 21:59; Status DC Nitroglycerin (Nitrostat) 0.4 mg PRN Q5MIN PRN SL CHEST PAIN; Start 05/31/18 at 22:00; Stop 06/01/18 at 21:59; Status DC Potassium Chloride (Klor-Con) 60 meq 1X ONCE PO Last administered on at 12:12; Start 06/01/18 at 11:45; Stop 06/01/18 at 11:46; Status DC Levothyroxine Sodium (Synthroid) 150 mcg DAILY06 PO Last administered on at 06:40; Start 06/02/18 at 06:00 Pantoprazole Sodium (Protonix) 40 mg DAILYAC PO ; Start 06/01/18 at 15:00 Atorvastatin Calcium (Lipitor) 20 mg QHS PO ; Start 06/02/18 at 21:00 Active Scripts Active Reported Synthroid (Levothyroxine Sodium) 150 Mcg Tablet 1 Tab PO BID Vitals/I & O Vital Sign - Last 24 Hours 06/01/18 06/01/18 06/01/18 06/01/18 15:00 19:20 20:11 23:40 Temp 98.0 97.6 97.7 98.0 97.6 97.7 Pulse 69 65 64 Resp 16 21 20 B/P (MAP) 120/73 (89) 150/68 (95) 138/70 (92) Pulse Ox 94 97 98 O2 Delivery Room Air Room Air Room Air Room Air 06/02/18 06/02/18 06/02/18 06/02/18 03:15 07:35 08:00 10:16 Temp 97.7 98.0 98.1 97.7 98.0 98.1 Pulse 61 59 65 Resp 18 18 18 B/P (MAP) 142/69 (93) 145/75 (98) 121/71 (88) Pulse Ox 96 97 97 O2 Delivery Room Air Room Air Room Air Room Air Intake and Output 06/01/18 06/01/18 06/02/18 14:59 22:59 06:59 Intake Total 0 ml 1500 ml 480 ml Output Total 1200 ml 1000 ml Balance 0 ml 300 ml -520 ml CHRISTO SO MD Jun 02, 2018 11:21
--- NOTE | 2018-06-02 11:59 | PDOC3 ---
Discharge Summary Date of Admission: May 31, 2018 Date of Discharge: Jun 02, 2018 Follow-Up: 3-5 days Admitting Diagnosis comment: DISCHARGE DX Assessment/Plan impression 1. chest pain with risk factors inc pos FAMILY HX, PREV SMOKER, POST MENOPAUSAL STATE, OBESITY 2. RUQ discomfort, needs outpatient work-up with PCP 3. Hypothyroid state, forgot to take meds x 48 hrs with inc TSH, NEEDS PCP TO FOLLOW 4, MORBID OBESITY 5. HYPERLIPIDEMIA, SHOULD IMPROVE WITH THYROID SUPPLEMENT RESTART, // F/U PCP/ LIPITOR PLAN HOME TODAY IF ECHO IS OK 06/02 CARDIOLOGY CONSULT OK WITH D/C IF ECHO OK ECHO SERIAL TROPONIN I DVT PROPHYLAXIS CONSIDER OUT-PT STRESS TESTING RESTART SYNTHROID 0.150 MG PO DAILY PROTONIX 40MG PO DAILY Vitals Vitals Vital Signs Date Time Temp Pulse Resp B/P (MAP) Pulse Ox O2 Delivery O2 Flow Rate FiO2 06/02/18 10:16 98.1 65 18 121/71 (88) 97 Room Air 98.1 Physical Exam General: Alert, Oriented X3, Cooperative, No acute distress Heart: Regular rate, Normal S1 Abdomen: Normal bowel sounds, Soft, No hepatosplenomegaly Extremities: No clubbing, No cyanosis, No edema Skin: No significant lesion FINAL DIAGNOSIS Problems Medical Problems: (1) Chest pain Status: Acute Brief Hospital Course Ms. Ott is a 52 old [sex] who presented with [ CHEST PAIN] CONDITION AT DISCHARGE: Improved Discharge Medications Current Medications Aspirin (Children'S Aspirin) 324 mg 1X ONCE PO Last administered on 05/31/18at 20:09; Start 05/31/18 at 20:15; Stop 05/31/18 at 20:16; Status DC Sodium Chloride 1,000 ml @ 100 mls/hr Q10H IV Last administered on 05/31/18at 20:10; Start 05/31/18 at 20:15; Stop 06/01/18 at 06:14; Status DC Ondansetron HCl (Zofran) 4 mg PRN Q8HRS PRN IV NAUSEA/VOMITING 1ST CHOICE; Start 05/31/18 at 22:00; Stop 06/01/18 at 21:59; Status DC Morphine Sulfate (Morphine Sulfate) 2 mg PRN Q2HR PRN IV SEVERE PAIN; Start at 22:00; Stop 06/01/18 at 21:59; Status DC Sodium Chloride 1,000 ml @ 125 mls/hr Q8H IV Last administered on 06/01/18at 12 :12; Start 05/31/18 at 22:00; Stop 06/01/18 at 14:06; Status DC Acetaminophen (Tylenol) 650 mg PRN Q4HRS PRN PO FEVER Last administered on 05/31at 22:49; Start 05/31/18 at 22:00; Stop 06/01/18 at 21:59; Status DC Nitroglycerin (Nitrostat) 0.4 mg PRN Q5MIN PRN SL CHEST PAIN; Start 05/31/18 at 22:00; Stop 06/01/18 at 21:59; Status DC Potassium Chloride (Klor-Con) 60 meq 1X ONCE PO Last administered on at 12:12; Start 06/01/18 at 11:45; Stop 06/01/18 at 11:46; Status DC Levothyroxine Sodium (Synthroid) 150 mcg DAILY06 PO Last administered on at 06:40; Start 06/02/18 at 06:00 Pantoprazole Sodium (Protonix) 40 mg DAILYAC PO ; Start 06/01/18 at 15:00 Atorvastatin Calcium (Lipitor) 20 mg QHS PO ; Start 06/02/18 at 21:00 Active Scripts Active Reported Synthroid (Levothyroxine Sodium) 150 Mcg Tablet 1 Tab PO BID Vital Signs Vital Signs Date Time Temp Pulse Resp B/P (MAP) Pulse Ox O2 Delivery O2 Flow Rate FiO2 06/02/18 10:16 98.1 65 18 121/71 (88) 97 Room Air 98.1 Labs Laboratory Tests Test 05/31/18 19:55 05/31/18 19:57 06/01/18 01:30 06/01/18 01:34 White Blood Count 7.2 x10^3/uL (4.0-11.0) Red Blood Count 3.89 x10^6/uL (3.50-5.40) Hemoglobin 12.3 g/dL (12.0-15.5) Hematocrit 36.8 % (36.0-47.0) Mean Corpuscular Volume 95 fL (79-100) Mean Corpuscular Hemoglobin 32 pg (25-35) Mean Corpuscular Hemoglobin Concent 33 g/dL (31-37) Red Cell Distribution Width 14.6 % (11.5-14.5) Platelet Count 302 x10^3/uL (140-400) Neutrophils (%) (Auto) 58 % (31-73) Lymphocytes (%) (Auto) 30 % (24-48) Monocytes (%) (Auto) 8 % (0-9) Eosinophils (%) (Auto) 2 % (0-3) Basophils (%) (Auto) 2 % (0-3) Neutrophils # (Auto) 4.1 x10^3uL (1.8-7.7) Lymphocytes # (Auto) 2.2 x10^3/uL (1.0-4.8) Monocytes # (Auto) 0.6 x10^3/uL (0.0-1.1) Eosinophils # (Auto) 0.2 x10^3/uL (0.0-0.7) Basophils # (Auto) 0.1 x10^3/uL (0.0-0.2) Prothrombin Time 12.7 SEC (11.7-14.0) Prothromb Time International Ratio 1.0 (0.8-1.1) Sodium Level 144 mmol/L (136-145) Potassium Level 3.3 mmol/L (3.5-5.1) Chloride Level 105 mmol/L (98-107) Carbon Dioxide Level 26 mmol/L (21-32) Anion Gap 13 (6-14) Blood Urea Nitrogen 17 mg/dL (7-20) Creatinine 1.4 mg/dL (0.6-1.0) Estimated GFR (Cockcroft-Gault) 39.3 BUN/Creatinine Ratio 12 (6-20) Glucose Level 114 mg/dL (70-99) Calcium Level 9.0 mg/dL (8.5-10.1) Magnesium Level 2.3 mg/dL (1.8-2.4) Total Bilirubin 0.3 mg/dL (0.2-1.0) Aspartate Amino Transf (AST/SGOT) 21 U/L (15-37) Alanine Aminotransferase (ALT/SGPT) 16 U/L (14-59) Alkaline Phosphatase 90 U/L (46-116) Troponin I Quantitative < 0.017 ng/mL (0.000-0.055) < 0.017 ng/mL (0.000-0.055) < 0.017 ng/mL (0.000-0.055) YC-Vio-X-Type Natriuretic Peptide 41 pg/mL (0-124) Total Protein 7.8 g/dL (6.4-8.2) Albumin 3.7 g/dL (3.4-5.0) Albumin/Globulin Ratio 0.9 (1.0-1.7) Lipase 109 U/L (73-393) Thyroid Stimulating Hormone (TSH) 258.496 uIU/mL (0.358-3.74) Bedside Troponin I 0.09 ng/ml (<0.08) Test 06/01/18 05:30 06/01/18 12:15 Triglycerides Level 97 mg/dL (0-150) Cholesterol Level 221 mg/dL (0-200) LDL Cholesterol, Calculated 146 mg/dL (0-100) VLDL Cholesterol, Calculated 19 mg/dL (0-40) Non-HDL Cholesterol Calculated 165 mg/dL (0-129) HDL Cholesterol 56 mg/dL (40-60) Cholesterol/HDL Ratio 3.9 Troponin I Quantitative < 0.017 ng/mL (0.000-0.055) Thyroid Stimulating Hormone (TSH) 198.260 uIU/mL (0.358-3.74) Laboratory Tests Test 06/01/18 12:15 Troponin I Quantitative < 0.017 ng/mL (0.000-0.055) Thyroid Stimulating Hormone (TSH) 198.260 uIU/mL (0.358-3.74) Allergies Allergies Coded Allergies Type Severity Reaction Last Updated Verified calamine Allergy Intermediate 05/31/18 Yes Disposition/Orders: D/C to Home Patient Instructions D/C PLANNING 38 MIN CHRISTO SO MD Jun 02, 2018 11:59
[2018-06-02] MEDS ORDERED: Pantoprazole PO (12:01)
[2018-06-02] MEDS ORDERED: ATOR40TA59 PO (12:01)
--- NOTE | 2018-06-02 13:21 | CARD ---
MR#: [id number] Date of Study: 06/02/2018 Ordering Physician: LAVERNE AZUL, Referring Physician: CHRISTO SO, Tech: Adwoa Zavaleta APPROVED REPORT EXAM: Two-dimensional and M-mode echocardiogram with Doppler and color Doppler. Other Information Quality : FairHR: 64bpm Technically limited study due to body habitus. INDICATION Chest Pain RISK FACTORS Previous smoker 2D DIMENSIONS RVDd2.7 (2.9-3.5cm)Left Atrium(2D)3.1 (1.6-4.0cm) IVSd1.4 (0.7-1.1cm)Aortic Root(2D)3.3 (2.0-3.7cm) LVDd2.9 (3.9-5.9cm)LVOT Diameter2.2 (1.8-2.4cm) PWd1.2 (0.7-1.1cm)LVDs2.9 (2.5-4.0cm) Aortic Valve AoV Peak Javier.91.0cm/sAoV VTI21.4cm AO Peak GR.3.3mmHgLVOT VTI 15.17cm AO Mean GR.3mmHg Mitral Valve MV E Obnihcra92.6cm/sMV DECEL [id number] MV A Xdfmskgb54.9cm/sE/A Ratio1.3 TDI Lateral E' P. V10.04cm/sMedial E' P. V8.11cm/s E/Lateral E'7.2E/Medial E'9.0 Tricuspid Valve RAP [id number] Pulmonary Vein S1 Yestrlxj02.5cm/sS2 Yxgmjvdp08.81cm/s D2 Degtjmlg76.8cm/sPVa [id number] LEFT VENTRICLE The left ventricle is normal size. There is normal left ventricular wall thickness. The left ventricu lar systolic function is normal and the ejection fraction is within normal range. The Ejection Fracti on is >55%. There is normal LV segmental wall motion. The left ventricular diastolic function and carmela ling is normal for age. RIGHT VENTRICLE The right ventricle is normal size. There is normal right ventricular wall thickness. The right ventr icular systolic function is normal. ATRIA The left atrium size is normal. The right atrium size is normal. The interatrial septum is intact wit h no evidence for an atrial septal defect or patent foramen ovale as noted on 2-D or Doppler imaging. AORTIC VALVE The aortic valve is not well visualized. Doppler and Color Flow revealed no significant aortic regurg itation. There is no significant aortic valvular stenosis. MITRAL VALVE The mitral valve is normal in structure and function. There is no evidence of mitral valve prolapse. There is no mitral valve stenosis. Doppler and Color Flow revealed no mitral valve regurgitation note d. TRICUSPID VALVE The tricuspid valve is not well visualized. Doppler and Color Flow revealed no tricuspid valve regurg itation noted. There is no tricuspid valve stenosis. PULMONIC VALVE The pulmonic valve is not well visualized. Doppler and Color Flow revealed no pulmonic valvular regur gitation. GREAT VESSELS The aortic root is normal in size. The IVC is normal in size and collapses >50% with inspiration. PERICARDIAL EFFUSION There is no evidence of significant pericardial effusion. Critical Notification Critical Value: No <Conclusion> The left ventricular systolic function is normal and the ejection fraction is within normal range. Th e Ejection Fraction is >55%. There is normal LV segmental wall motion. Signed by : Laverne Azul, Electronically Approved : 06/02/2018 13:21:08
--- NOTE | 2018-06-02 13:51 | DISCH ---
DISCHARGE INSTRUCTIONS Condition on Discharge Condition on Discharge: Stable Activity After Discharge Activity Instructions for Disc: Activity as tolerated Exercise Instruction after Dis: Walk 10 min, 3 x per day Driving Instructions after Dis: Do not drive today Weight Bearing Status after Di: Full weight bearing Diet after Discharge Diet after Discharge: Cardiac Contacting the DR. after DC Call your doctor for: If your condition worsens CHRISTO SO MD Jun 02, 2018 13:51
--- NOTE | 2018-06-02 14:26 | NUR ---
PATIENTS IV REMOVED AND TELE MONITOR OFF. PATIENTS PRESCRIPTIONS FOR ATORVASTATIN AND PANTOPRAZOLE CALLED INTO [facility]. PATIENTS DISCHARGE INSTRUCTIONS DISCUSSED WITH PATIENT AND PATIENTS . PATIENT HAS NO QUESTIONS AT THIS TIME. PATIENT INFORMED TO FOLLOW UP WITH PCP IN 1 WEEK AND METAL REFINER IN 4 WEEKS. PATIENT STABLE AT TIME OF DISCHARGE. PATIENT ESCORTED TO HUSBANDS VEHICLE BY THIS RN.
[2018-06-02] MEDS ORDERED: ATORVASTATIN CALCIUM 20 MG TABLET PO SCH (21:00)
[2018-06-02] MEDS ORDERED: ATORVASTATIN CALCIUM 40 MG TABLET. PO SCH (21:00)
== END 2018-06-02 14:34 | disposition home or self-care (01) | DRG 313 ==
LOC: ER 19:18 → 2 NORTH 21:51 → OBSVTOIN 21:51
PROVIDERS: ADMIT Family Medicine; ATTEND Family Medicine
DX: R07.89 Other chest pain (principal); Z68.41 Body mass index [BMI] 40.0-44.9, adult; E03.9 Hypothyroidism, unspecified; E66.01 Morbid (severe) obesity due to excess calories; E78.5 Hyperlipidemia, unspecified; Z78.0 Asymptomatic menopausal state; Z82.49 Family history of ischemic heart disease and other diseases of the circulatory system; Z87.891 Personal history of nicotine dependence
CPT/HCPCS: 36415; 71046; 80053; 80061; 83690; 83735; 83880; 84443; 84484; 85025; 85610; 93005; 93306; 96360; J7030; 99285-25

== ENCOUNTER 2018-10-14 15:01 | Emergency (ER) | payer BC, OTHER ==
[~2018-10-14] VITALS: Ht 162.6 cm; Wt 104.8 kg
[~2018-10-14 15:01] MED LIST: ATOR40TA59 PO; LEVO150T PO; Pantoprazole PO
[2018-10-14 16:49] LABS: BILIRUBIN,URINE SMALL (NEG); CLARITY,URINE CLEAR; COLOR,URINE AMBER; NITRITE,URINE NEGATIVE (NEG); PH,URINE 5.5; PROTEIN,URINE NEGATIVE (NEG-TRACE)
--- NOTE | 2018-10-14 16:50 | PHYS DOC ---
Past Medical History Past Medical History: Hypothyroid (CANDY DOHERTY APRN) Past Surgical History: Cholecystectomy, Other Additional Past Surgical Histo: CARPAL TUNNEL SURGERY, NECK SURGERY (CANDY DOHERTY APRN) Alcohol Use: None Drug Use: None (CANDY DOHERTY APRN) Adult General Chief Complaint Chief Complaint: FLANK PAIN HPI HPI Patient is a 52 year old female with history of hypothyroidism who presents today with moderate right flank pain described as stabbing intermittently for one year. 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 Patient states she's been taking [id number] remedies with no relief. Denies any nausea vomiting. Denies any chest pain or shortness of breath. Patient denies any nausea, vomiting, urgency, frequency, hematuria. Patient's states she has an appointment with her installation manager in December as referred by the PCP. (CANDY DOHERTY APRN) Review of Systems Review of Systems Constitutional: Denies fever or chills [] Eyes: Denies change in visual acuity, redness, or eye pain [] HENT: Denies nasal congestion or sore throat [] Respiratory: Denies cough or shortness of breath [] Cardiovascular: No additional information not addressed in HPI [] GI: Denies abdominal pain, nausea, vomiting, bloody stools or diarrhea [] : Reports right flank pain. Denies dysuria or hematuria [] Musculoskeletal: Denies back pain or joint pain [] Integument: Denies rash or skin lesions [] Neurologic: Denies headache, focal weakness or sensory changes [] All other systems were reviewed and found to be within normal limits, except as documented in this note. (CANDY DOHERTY APRN) Current Medications Current Medications Current Medications Medications (Trade) Dose Ordered Sig/Contreras Start Time Stop Time Status Last Admin Dose Admin Morphine Sulfate (Morphine Sulfate) 5 mg 1X ONCE 10/14/18 17:00 10/14/18 17:01 DC 10/14/18 17:29 5 MG Ondansetron HCl (Zofran) 4 mg 1X ONCE 10/14/18 17:00 10/14/18 17:01 DC 10/14/18 17:29 4 MG (ROHITH AMARO DO) Allergies Allergies Allergies Coded Allergies Type Severity Reaction Last Updated Verified calamine Allergy Intermediate 05/31/18 Yes (ROHITH AMARO DO) Physical Exam Physical Exam Constitutional: Well developed, well nourished, no acute distress, non-toxic appearance. [] HENT: Normocephalic, atraumatic, bilateral external ears normal, oropharynx moist, no oral exudates, nose normal. [] Eyes: PERRLA, EOMI, conjunctiva normal, no discharge. [] Neck: Normal range of motion, no tenderness, supple, no stridor. [] Cardiovascular:Heart rate regular rhythm, no murmur [] Lungs & Thorax: Bilateral breath sounds clear to auscultation [] Abdomen: Bowel sounds normal, soft, no tenderness, no masses, no pulsatile masses. [] Skin: Warm, dry, no erythema, no rash. [] Back: No tenderness, no CVA tenderness. [] Extremities: No tenderness, no cyanosis, no clubbing, ROM intact, no edema. [] Neurologic: Alert and oriented X 3, normal motor function, normal sensory function, no focal deficits noted. [] Psychologic: Affect normal, judgement normal, mood normal. [] (CANDY DOHERTY APRN) Current Patient Data Vital Signs Vital Signs Date Time Temp Pulse Resp B/P (MAP) Pulse Ox O2 Delivery O2 Flow Rate FiO2 10/14/18 18:00 84 18 145/86 (105) 95 Room Air 10/14/18 15:56 97.7 97.7 (ROHITH AMARO DO) Lab Values Laboratory Tests Test 10/14/18 16:30 10/14/18 17:10 Urine Collection Type Unknown Urine Color [place] Urine Clarity Clear Urine pH 5.5 Urine Specific [place] >=1.030 Urine Protein Negative mg/dL (NEG-TRACE) Urine Glucose (UA) Negative mg/dL (NEG) Urine Ketones (Stick) Trace mg/dL (NEG) Urine Blood Trace (NEG) Urine Nitrite Negative (NEG) Urine Bilirubin Small (NEG) Urine Urobilinogen Dipstick 1.0 mg/dL (0.2 mg/dL) Urine Leukocyte Esterase Trace (NEG) Urine RBC Occ /HPF (0-2) Urine WBC 1-4 /HPF (0-4) Urine Squamous Epithelial Cells Many /LPF Urine Bacteria Few /HPF (0-FEW) Urine Hyaline Casts Occasional /HPF Urine Mucus Marked /LPF Urine Opiates Screen Neg (NEG) Urine Methadone Screen Neg (NEG) Urine Barbiturates Neg (NEG) Urine Phencyclidine Screen Neg (NEG) Urine Amphetamine/Methamphetamine Pos (NEG) Urine Benzodiazepines Screen Neg (NEG) Urine Cocaine Screen Neg (NEG) Urine Cannabinoids Screen Neg (NEG) Urine Ethyl Alcohol Neg (NEG) White Blood Count 6.7 x10^3/uL (4.0-11.0) Red Blood Count 4.19 x10^6/uL (3.50-5.40) Hemoglobin 12.2 g/dL (12.0-15.5) Hematocrit 37.0 % (36.0-47.0) Mean Corpuscular Volume 88 fL (79-100) Mean Corpuscular Hemoglobin 29 pg (25-35) Mean Corpuscular Hemoglobin Concent 33 g/dL (31-37) Red Cell Distribution Width 13.5 % (11.5-14.5) Platelet Count 311 x10^3/uL (140-400) Neutrophils (%) (Auto) 61 % (31-73) Lymphocytes (%) (Auto) 26 % (24-48) Monocytes (%) (Auto) 10 % (0-9) H Eosinophils (%) (Auto) 2 % (0-3) Basophils (%) (Auto) 1 % (0-3) Neutrophils # (Auto) 4.1 x10^3/uL (1.8-7.7) Lymphocytes # (Auto) 1.8 x10^3/uL (1.0-4.8) Monocytes # (Auto) 0.7 x10^3/uL (0.0-1.1) Eosinophils # (Auto) 0.1 x10^3/uL (0.0-0.7) Basophils # (Auto) 0.1 x10^3/uL (0.0-0.2) Sodium Level 146 mmol/L (136-145) H Potassium Level 3.9 mmol/L (3.5-5.1) Chloride Level 109 mmol/L (98-107) H Carbon Dioxide Level 27 mmol/L (21-32) Anion Gap 10 (6-14) Blood Urea Nitrogen 20 mg/dL (7-20) Creatinine 1.2 mg/dL (0.6-1.0) H Estimated GFR (Cockcroft-Gault) 47.0 BUN/Creatinine Ratio 17 (6-20) Glucose Level 103 mg/dL (70-99) H Calcium Level 9.2 mg/dL (8.5-10.1) Total Bilirubin 0.2 mg/dL (0.2-1.0) Aspartate Amino Transferase (AST) 43 U/L (15-37) H Alanine Aminotransferase (ALT) 53 U/L (14-59) Alkaline Phosphatase 109 U/L (46-116) Total Protein 7.5 g/dL (6.4-8.2) Albumin 3.3 g/dL (3.4-5.0) L Albumin/Globulin Ratio 0.8 (1.0-1.7) L Lipase 104 U/L (73-393) Ethyl Alcohol Level < 10 mg/dL (0-10) Laboratory Tests 10/14/18 17:10 Laboratory Tests 10/14/18 17:10 (ROHITH AMARO DO) Lab Values Laboratory Tests Test 10/14/18 16:30 10/14/18 17:10 Urine Collection Type Unknown Urine Color [place] Urine Clarity Clear Urine pH 5.5 Urine Specific [place] >=1.030 Urine Protein Negative mg/dL (NEG-TRACE) Urine Glucose (UA) Negative mg/dL (NEG) Urine Ketones (Stick) Trace mg/dL (NEG) Urine Blood Trace (NEG) Urine Nitrite Negative (NEG) Urine Bilirubin Small (NEG) Urine Urobilinogen Dipstick 1.0 mg/dL (0.2 mg/dL) Urine Leukocyte Esterase Trace (NEG) Urine RBC Occ /HPF (0-2) Urine WBC 1-4 /HPF (0-4) Urine Squamous Epithelial Cells Many /LPF Urine Bacteria Few /HPF (0-FEW) Urine Hyaline Casts Occasional /HPF Urine Mucus Marked /LPF Urine Opiates Screen Neg (NEG) Urine Methadone Screen Neg (NEG) Urine Barbiturates Neg (NEG) Urine Phencyclidine Screen Neg (NEG) Urine Amphetamine/Methamphetamine Pos (NEG) Urine Benzodiazepines Screen Neg (NEG) Urine Cocaine Screen Neg (NEG) Urine Cannabinoids Screen Neg (NEG) Urine Ethyl Alcohol Neg (NEG) White Blood Count 6.7 x10^3/uL (4.0-11.0) Red Blood Count 4.19 x10^6/uL (3.50-5.40) Hemoglobin 12.2 g/dL (12.0-15.5) Hematocrit 37.0 % (36.0-47.0) Mean Corpuscular Volume 88 fL (79-100) Mean Corpuscular Hemoglobin 29 pg (25-35) Mean Corpuscular Hemoglobin Concent 33 g/dL (31-37) Red Cell Distribution Width 13.5 % (11.5-14.5) Platelet Count 311 x10^3/uL (140-400) Neutrophils (%) (Auto) 61 % (31-73) Lymphocytes (%) (Auto) 26 % (24-48) Monocytes (%) (Auto) 10 % (0-9) H Eosinophils (%) (Auto) 2 % (0-3) Basophils (%) (Auto) 1 % (0-3) Neutrophils # (Auto) 4.1 x10^3/uL (1.8-7.7) Lymphocytes # (Auto) 1.8 x10^3/uL (1.0-4.8) Monocytes # (Auto) 0.7 x10^3/uL (0.0-1.1) Eosinophils # (Auto) 0.1 x10^3/uL (0.0-0.7) Basophils # (Auto) 0.1 x10^3/uL (0.0-0.2) Sodium Level 146 mmol/L (136-145) H Potassium Level 3.9 mmol/L (3.5-5.1) Chloride Level 109 mmol/L (98-107) H Carbon Dioxide Level 27 mmol/L (21-32) Anion Gap 10 (6-14) Blood Urea Nitrogen 20 mg/dL (7-20) Creatinine 1.2 mg/dL (0.6-1.0) H Estimated GFR (Cockcroft-Gault) 47.0 BUN/Creatinine Ratio 17 (6-20) Glucose Level 103 mg/dL (70-99) H Calcium Level 9.2 mg/dL (8.5-10.1) Total Bilirubin 0.2 mg/dL (0.2-1.0) Aspartate Amino Transferase (AST) 43 U/L (15-37) H Alanine Aminotransferase (ALT) 53 U/L (14-59) Alkaline Phosphatase 109 U/L (46-116) Total Protein 7.5 g/dL (6.4-8.2) Albumin 3.3 g/dL (3.4-5.0) L Albumin/Globulin Ratio 0.8 (1.0-1.7) L Lipase 104 U/L (73-393) Ethyl Alcohol Level < 10 mg/dL (0-10) Laboratory Tests 10/14/18 17:10 Laboratory Tests 10/14/18 17:10 (CANDY DOHERTY APRN) EKG EKG [] (CANDY DOHERTY APRN) Radiology/Procedures Radiology/Procedures []PROCEDURE: CT ABDOMEN PELVIS WO CONTRAST Exam: CT abdomen and pelvis without contrast INDICATION: Right flank pain TECHNIQUE: Sequential axial images through the abdomen and pelvis obtained without IV contrast. Sagittal and coronal reformatted images were reconstructed from the axial data and reviewed. Comparisons: None FINDINGS: Heart size is normal. Centrilobular emphysematous change noted within the visualized lung bases. No pleural effusion. Evaluation of the solid organs is limited secondary to noncontrast technique. Liver, spleen, pancreas and adrenals are unremarkable. Gallbladder is surgically absent. No perinephric inflammation or hydronephrosis. Tiny nonobstructing renal calculi noted in the right kidney upper pole measuring less than 1 mm. No ureteral calculi. Bladder is decompressed not well evaluated. Uterus is not enlarged. No abnormal adnexal mass. Large and small bowel are unremarkable. Appendix is normal. No free intra-abdominal air or fluid. Abdominal aorta has a normal course and caliber. No enlarged intra-abdominal lymph nodes are identified. No suspicious osseous lesions or acute fractures. IMPRESSION: 1. Right-sided nephrolithiasis without evidence for obstructive uropathy. 2. No finding to explain patient's pain. 3. Centrilobular emphysematous change in the visualized lung bases. Exposure: One or more of the following in the visualized dose reduction techniques were utilized for this examination: 1. Automated exposure control 2. Adjustment of the MA and/or KV according to patient size 3. Use of iterative of reconstructive technique Electronically signed by: Kim Groves MD (10/14/2018 6:11 PM) [facility] DICTATED and SIGNED BY: KIM GROVES MD DATE: 10/14/181810 (CANDY DOHERTY APRN) Course & Med Decision Making Course & Med Decision Making Pertinent Labs and Imaging studies reviewed. (See chart for details) This is a 52-year-old female patient who presents to the ED today complaining of right flank pain that has been going on for 1 year. Urine analysis is negative for any acute findings. CBC, CMP, lipase-no acute findings. Noted for methamphetamine use. CT of the abdomen and pelvic was noted for nephrolithiasis with no obstruction-otherwise no acute findings. Results were given to patient and the . The got very heated in the room yelling at me telling me that he needs to find answers right now. He states the system is mess. He states he and the have insurance and the system has allowed a bunch of people with no insurance to be taken care of they cannot receive the care of the need because the system is full of people with no insurance. He goes on and on yelling about the system stating he needs answers right now why the has right flank pain with no answers, he states they have seen the PCP and referred to installation manager but they can not see her until December. Informed the we have provided adequate emergency care that is warranted for right flank pain including lab work and CT we do not see any acute findings. Recommended the this patient has been having this pain for one year the primary care doctor has already referred the patient with installation manager. continues to use "F" words. The is requesting to speak to installation manager and have the patient be seen by a installation manager right now. Informed the we do not have any emergency relation to warrant bringing in a installation manager to the ED right now.He walks out cursing. Again comes back to the desk and continues to yell demanding to speak to a provide the right now. ROBINA Tellez and I went back to the room, he continues to complain. We informed him we h ave done all the workup necessary for the patient's complain we could not find any acute cause we recommend seeing a primary care doctor as well as installation manager as referred by the primary care doctor. Also informed him i already talked to patient about seeing a urologist. He continues to complain using foul language. Informed him it's not fair to be using foul language to Rosalinda and Malini in the room. He states he will not apologize and continues to complain. Please see RN notes for more information. (CANDY DOHERTY APRN) Dragon Disclaimer Dragon Disclaimer This electronic medical record was generated, in whole or in part, using a voice recognition dictation system. (CANDY DOHERTY APRN) Departure Departure Impression: Primary Impression: Right flank pain Additional Impressions: Methamphetamine use Right nephrolithiasis Disposition: HOME, SELF-CARE Condition: STABLE Referrals: JOSE JUAN ASHTON DO (PCP) Follow-up with your primary care doctor as soon as possible. OLENA HAMMOND MD Call the office tomorro and set up a follows up appointment MI GROSSMAN MD Please follow-up with Dr. Grossman as reffered by your primary care doctor Patient Instructions: Flank Pain, [id number] Additional Instructions: You were evaluated for flank pain he workup in the emergency room was negative for any acute findings, he was noted to have kidney stones in your kidneys, they typically do not cause issues unless they start moving please follow up with the provided urologist. Please contact your primary care doctor tomorrow morning and set up a follow-up appointment. Also follow-up with the provided urologist and installation manager. Attending Signature Attending Signature I have reviewed the PA/DENTAL SPECIALIST's note and plan of care. I was available for consultation as needed during the patient's visit in the emergency department. I agree with the clinical impression, plan, and disposition. (ROHITH AMARO DO) Problem Qualifiers CANDY DOHERTY APRN Oct 14, 2018 16:50 ROHITH AMARO DO Oct 15, 2018 04:35
[2018-10-14 16:56] LABS: BACTERIA,URINE FEW /HPF (0-FEW); RBC,URINE OCC /HPF (0-2); SQUAMOUS EPITHELIAL CELL,UR MANY /LPF
[2018-10-14 16:57] LABS: HYALINE CASTS, URINE OCCASIONAL /HPF
[2018-10-14] MEDS ORDERED: ONDANSETRON PF 4 MG/2 ML VIAL. IV ONE (17:00)
[2018-10-14] MEDS ORDERED: MORPHINE SULFATE 10 MG/ML VIAL. IV ONE (17:00)
[2018-10-14 17:21] LABS: BARBITURATES NEG (NEG); BENZODIAZEPINES NEG (NEG); CANNABINOIDS NEG (NEG); COCAINE NEG (NEG); METHADONE NEG (NEG); OPIATES NEG (NEG); PHENCYCLIDINE NEG (NEG)
[2018-10-14 17:22] LABS: AMPHETAMINE/METHAMPHETAMINE POS (NEG)
[2018-10-14 17:26] LABS: BASO # 0.1 x10^3/uL (0.0-0.2); BASO % 1 % (0-3); EOS # 0.1 x10^3/uL (0.0-0.7); EOS % 2 % (0-3); HEMOGLOBIN 12.2 g/dL (12.0-15.5); LYMPH # 1.8 x10^3/uL (1.0-4.8); LYMPH % 26 % (24-48); MEAN CORPUSCULAR HEMOGLOBIN 29 pg (25-35); MEAN CORPUSCULAR HGB CONC 33 g/dL (31-37); MEAN CORPUSCULAR VOLUME 88 fL (79-100); MONO # 0.7 x10^3/uL (0.0-1.1); MONO % 10 % (0-9); NEUT # 4.1 x10^3/uL (1.8-7.7); NEUT % 61 % (31-73); PLATELET COUNT 311 x10^3/uL (140-400); RED BLOOD COUNT 4.19 x10^6/uL (3.50-5.40); RED CELL DISTRIBUTION WIDTH 13.5 % (11.5-14.5); WHITE BLOOD COUNT 6.7 x10^3/uL (4.0-11.0)
[2018-10-14 17:33] LABS: CALCIUM 9.2 mg/dL (8.5-10.1); CREATININE 1.2 mg/dL (0.6-1.0); POTASSIUM 3.9 mmol/L (3.5-5.1)
[2018-10-14 17:39] LABS: ALBUMIN 3.3 g/dL (3.4-5.0); ALBUMIN/GLOBULIN RATIO 0.8 (1.0-1.7); TOTAL BILIRUBIN 0.2 mg/dL (0.2-1.0); TOTAL PROTEIN 7.5 g/dL (6.4-8.2)
[2018-10-14 18:00] VITALS: BP 145/86
--- NOTE | 2018-10-14 18:14 | RAD ---
Exam: CT abdomen and pelvis without contrast INDICATION: Right flank pain TECHNIQUE: Sequential axial images through the abdomen and pelvis obtained without IV contrast. Sagittal and coronal reformatted images were reconstructed from the axial data and reviewed. Comparisons: None FINDINGS: Heart size is normal. Centrilobular emphysematous change noted within the visualized lung bases. No pleural effusion. Evaluation of the solid organs is limited secondary to noncontrast technique. Liver, spleen, pancreas and adrenals are unremarkable. Gallbladder is surgically absent. No perinephric inflammation or hydronephrosis. Tiny nonobstructing renal calculi noted in the right kidney upper pole measuring less than 1 mm. No ureteral calculi. Bladder is decompressed not well evaluated. Uterus is not enlarged. No abnormal adnexal mass. Large and small bowel are unremarkable. Appendix is normal. No free intra-abdominal air or fluid. Abdominal aorta has a normal course and caliber. No enlarged intra-abdominal lymph nodes are identified. No suspicious osseous lesions or acute fractures. IMPRESSION: 1. Right-sided nephrolithiasis without evidence for obstructive uropathy. 2. No finding to explain patient's pain. 3. Centrilobular emphysematous change in the visualized lung bases. Exposure: One or more of the following in the visualized dose reduction techniques were utilized for this examination: 1. Automated exposure control 2. Adjustment of the MA and/or KV according to patient size 3. Use of iterative of reconstructive technique Electronically signed by: Kim Catalan MD (10/14/2018 6:11 PM) [facility]
== END 2018-10-14 19:25 | disposition home or self-care (01) ==
LOC: ER 15:01
DX: N20.0 Calculus of kidney (principal); F15.90 Other stimulant use, unspecified, uncomplicated; E03.9 Hypothyroidism, unspecified; Z90.49 Acquired absence of other specified parts of digestive tract; Z88.8 Allergy status to other drugs, medicaments and biological substances
CPT/HCPCS: 36415; 74176; 80053; 80307; 81001; 83690; 85025; 87086; 96374; 96375; 99285; G0480; J2270; J2405